=== PATIENT | male | born 1955 | race Caucasian/White ===

== ENCOUNTER 2020-01-30 13:43 | Outpatient (REF) | payer OTHER, SELFPAY | END 2020-01-30 13:44 | disposition home or self-care (01) | LOC: HO.LAB 13:43 | PROVIDERS: Visit Provider Internal Medicine | DX: Z20.828 Contact with and (suspected) exposure to other viral communicable diseases (principal) | CPT/HCPCS: C9803; U0003 ==

== ENCOUNTER 2020-05-06 08:12 | Outpatient (REF) | payer OTHER, SELFPAY ==
--- NOTE | 2020-05-06 11:39 | MHC.AU.P13 ---
Adult Audiological Evaluation Date of Visit: 05/06/20 Reason for Appointment: Audiological evaluation due to concern for decreased hearing. Patient has been in contact with Darren Sanchez from [facility]. He notes that he has been having difficulty hearing and understanding in most situations. He notes that he has to turn his TV to hear it. Does patient feel they have a hearing loss?: Yes If Yes, Which Ear?: Both Ears When Was Hearing Difficulty First Noticed?: ~15 years ago Has hearing been tested previously?: Yes Previous Hearing Test Results: [facility], 15-20 years ago. Patient notes that at that time he was told he has ~25% hearing loss . Records not available to be reviewed today. 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 Medical History: Medical History: Diabetes, Head Injury, High Blood Pressure Medical History (Other): IBS, cataracts in both eyes, 1964 hernia, 1966 tonsils, 1988 varicose vein in groin, 2018 right shoulder surgery Allergies: Peanuts Medication List: Albuterol 90 mg 3x daily, Pravastatin 40 mg daily, Metformin 500 mg 2x daily, Irbesartan 150 mg daily, Esomeprazole 20 mg every other day, Metamucil daily Otoscopy: Right Ear: Occluded with wax, most removed with EarWax MD drops & lighted curette Left Ear: Non-occluding cerumen removed with lighted curette Tympanometry: Tympanometry performed due to: To determine if cerumen blockage is fully occluding canal(s) Right Ear: Normal Middle Ear System (Type A) Double-Peaked Tympanogram Left Ear: Normal Middle Ear System (Type A) Hearing Evaluation: Transducer(s) Used: Insert Earphones Bone Conduction Method: Conventional Audiometry Stimuli Used: Pure Tones Right Ear: Description of Hearing: Mild sloping to moderately severe sensorineural hearing loss from 250-8000 Hz. Left Ear: Description of Hearing: Mild sloping to moderately severe sensorineural hearing loss from 250-8000 Hz. Speech Recognition Threshold (SRT): Method Used: Monitored Live Voice Stimuli Used: Spondee Words Right Ear: 40 dBHL Left Ear: 45 dBHL Word Discrimination: Method: Recorded Lists Word Lists Used: NU-6 Right Ear: 96% at 80 dBHL Left Ear: 84% at 80 dBHL Recommendations: Trial with amplification is recommended. Hearing Aid Fitting will be scheduled when all materials arrive. Patient plans to contact [employer]. See Hearing Aid Evaluation report for more information. [employer] quote will be sent to [facility]. Once approved, aids will be ordered. Recommend use of EarWax MD drops to aid in removing the remaining wax from the right ear and continued use to help prevent further ear wax build-up. Diagnosis: Primary Diagnosis: H90.3 Bilateral Sensorineural Hearing Loss Secondary Diagnosis: H61.21 Impacted Cerumen, Right Ear Services Performed: Services Performed: Comprehensive Audiological Evaluation (CPT 72232) Tympanometry (CPT 09550) Signature: Provider: Tanner Ricketts, CCC-A
--- NOTE | 2020-05-06 11:40 | MHC.AU.P13 ---
Hearing Aid Evaluation- Binaural Date of Visit: 05/06/20 Description of Hearing: Mild sloping to moderately severe sensorineural hearing loss from 250-8000 Hz bilaterally. Additional Information: Mr. Courtney reports significant difficulty hearing and understanding in most situations. Binaural amplification is recommended to facilitate improved communication. Mr. Courtney has been approved for services through [facility]. Went over hearing aid options with him and he is interested in rechargeable SEBASTIAN hearing aids. Hearing Instrument Selection: Right Ear: Ripening Room Operator: Phonak Model: Audeo P70-R Battery Size: Rechargeable Color: P5 Silver Durham Passenger Locomotive Engineer: Size 2 M Type of Dome: large vented Left Ear: Ripening Room Operator: Phonak Model: Audeo P70-R Battery Size: Rechargeable Color: P5 silver durham Passenger Locomotive Engineer: Size 1 M Type of Dome: Large vented Plan: Plan of Care for Hearing Instrument Fitting: Patient wishes to purchase hearing aids as prescribed Action Taken/Action Needed: Prior authorization to be requested Hearing Fitting to be scheduled when materials arrive Diagnosis Code(s): Primary Diagnosis: H90.3 Bilateral Sensorineural Hearing Loss Secondary Diagnosis: H61.21 Impacted Cerumen, Right Ear Signature: Provider: Tanner Ricketts, CCC-A
--- NOTE | 2020-05-06 11:41 | MHC.AU.MED ---
Medical Clearance for Hearing Instrumentation Date: 05/06/20 Patient Name: Gary Courtney Date of : 1955 Primary Care Provider: Matt Downing MD We have seen your patient on 05/06/20 and have determined that they are a candidate for amplification (See accompanying report). Specifically, they would benefit from: Hearing aid use in both ears There is a statute that addresses Medical Evaluation Requirements prior to fitting a patient with a hearing aid. According to [place] statute 265 CMR:6.03(1), (a) General. Except as provided in 265 CMR 6.03(1)(b), a professor of vegetable science shall not sell a hearing aid unless the prospective user has presented to the professor of vegetable science a written statement signed by a licensed physician that states that the patient's hearing loss has been medically evaluated and the patient may be considered a candidate for a hearing aid. The medical evaluation must have taken place within the preceding six months. Please note: Due to the [place] Statute referenced above, we cannot accept a signature other than that of a licensed physician. MAINTENANCE MECHANIC ELEVATORS and PA signatures cannot be accepted. I am in agreement with the above recommendation. There is no medical contraindication for hearing instrumentation. Physician Signature Date Physician Name (Printed)
== END 2020-05-06 08:13 | disposition home or self-care (01) ==
LOC: HO.SH 08:12
PROVIDERS: Visit Provider Internal Medicine
DX: H90.3 Sensorineural hearing loss, bilateral (principal); H61.21 Impacted cerumen, right ear
CPT/HCPCS: 92557; 92567; 92591

== ENCOUNTER 2020-05-06 16:30 | Outpatient (REF) | payer OTHER, SELFPAY | END 2020-05-07 14:38 | disposition other institution (70) | LOC: HO.HAP 16:30 | PROVIDERS: Visit Provider Internal Medicine | DX: Z46.1 Encounter for fitting and adjustment of hearing aid (principal) | CPT/HCPCS: 92591 ==

== ENCOUNTER 2020-06-15 10:21 | Outpatient (REF) | payer OTHER, SELFPAY | END 2020-06-15 10:22 | disposition home or self-care (01) | LOC: HO.HAP 10:21 | PROVIDERS: Visit Provider Internal Medicine | DX: Z46.1 Encounter for fitting and adjustment of hearing aid (principal); H90.3 Sensorineural hearing loss, bilateral | CPT/HCPCS: V5011; V5020; V5160; V5261 ==

== ENCOUNTER 2020-06-19 10:53 | Outpatient (REF) | payer SELFPAY | END 2020-06-19 10:54 | disposition home or self-care (01) | LOC: HO.HAP 10:53 | PROVIDERS: Visit Provider Internal Medicine | DX: Z13.89 Encounter for screening for other disorder (principal) ==

== ENCOUNTER 2021-02-01 13:43 | Outpatient (REF) | payer SELFPAY | END 2021-02-01 13:44 | disposition home or self-care (01) | LOC: HO.HAP 13:43 | PROVIDERS: Visit Provider Nurse Practitioner Family | DX: Z13.89 Encounter for screening for other disorder (principal) ==

== ENCOUNTER 2021-06-21 12:50 | Outpatient (REF) | payer SELFPAY | END 2021-06-21 12:51 | disposition home or self-care (01) | LOC: HO.HAP 12:50 | PROVIDERS: Visit Provider Internal Medicine | DX: Z46.1 Encounter for fitting and adjustment of hearing aid (principal); H90.3 Sensorineural hearing loss, bilateral | CPT/HCPCS: V5267 ==

== ENCOUNTER 2021-12-28 11:27 | Outpatient (REF) | payer SELFPAY ==
--- NOTE | 2021-12-28 12:21 | MHC.AU.HFU ---
Hearing Instrument Follow-Up- Binaural Date of Visit: 12/28/21 Right Ear: Seismograph Computer: Phonak Model: Audeo P70-R Serial Number: [id number] Repair Warranty: 09/01/2023 Loss and Damage Warranty: 09/01/2023 Battery Size: Rechargeable Color: P5 Silver Durham Field Research Assistant: Size 2 M Type of Dome: small open Type of Wax Guard: Cerushield Dispensed By: [facility] Date of Fittin06/12/2020 Left Ear: Seismograph Computer: Phonak Model: Audeo P70-R Serial Number: [id number] Repair Warranty: 09/01/2023 Loss and Damage Warranty: 09/01/2023 Battery Size: Rechargeable Color: P5 silver durham Field Research Assistant: Size 1 M Type of Dome: small open Type of Wax Guard: Cerushield Dispensed By: [facility] Date of Fittin06/12/2020 Follow-Up Summary: Patient dropped off the right hearing aid with the apns wire broken. Replaced #2M right apns under warranty. Cleaned the aid and microphones, aid amplifying clearly. Diagnosis Code(s): Primary Diagnosis: H90.3 Bilateral Sensorineural Hearing Loss Signature:Provider: Tanner Cárdenas, CCC-A
== END 2021-12-28 11:28 | disposition home or self-care (01) ==
LOC: HO.HAP 11:27
PROVIDERS: Visit Provider Internal Medicine
DX: Z13.89 Encounter for screening for other disorder (principal)

== ENCOUNTER 2021-12-30 15:18 | Outpatient (REF) | payer OTHER, SELFPAY ==
--- NOTE | 2021-12-31 08:33 | MHC.AU.HFU ---
Hearing Instrument Follow-Up- Binaural Date of Visit: 12/30/21 Right Ear: Baling Press Operator: Phonak Model: Audeo P70-R Serial Number: [id number] Repair Warranty: 09/01/2023 Loss and Damage Warranty: 09/01/2023 Battery Size: Rechargeable Color: P5 Silver Durham Order Planner: Size 2 M Type of Dome: small open Type of Wax Guard: Cerushield Dispensed By: [facility] Date of Fittin06/12/2020 Left Ear: Baling Press Operator: Phonak Model: Audeo P70-R Serial Number: [id number] Repair Warranty: 09/01/2023 Loss and Damage Warranty: 09/01/2023 Battery Size: Rechargeable Color: P5 silver durham Order Planner: Size 1 M Type of Dome: small open Type of Wax Guard: Cerushield Dispensed By: [facility] Date of Fittin06/12/2020 Follow-Up Summary: Gary returned for a hearing aid repair, as the news editor wire broke off his left hearing aid. Cleaned the left hearing aid, vacuumed the microphones, replaced the news editor wire (size 1M) and dome. Listening check demonstrated that the hearing aid is in good working order. Recommendations:Hearing instrument maintenance in 6 months, or sooner if needed. Please contact our clinic with any questions or concerns. Diagnosis Code(s): Primary Diagnosis: H90.3 Bilateral Sensorineural Hearing Loss Signature: Provider: Gilbert Aguirre, CCC-A
== END 2021-12-30 15:19 | disposition home or self-care (01) ==
LOC: HO.HAP 15:18
PROVIDERS: Visit Provider Internal Medicine
DX: Z13.89 Encounter for screening for other disorder (principal)
CPT/HCPCS: 92621

== ENCOUNTER 2021-12-30 15:23 | Outpatient (REF) | payer OTHER, SELFPAY | END 2021-12-30 15:24 | disposition home or self-care (01) | LOC: HO.HAP 15:23 | PROVIDERS: Visit Provider Internal Medicine | DX: Z13.89 Encounter for screening for other disorder (principal) ==

== ENCOUNTER 2022-01-24 13:36 | Outpatient (REF) | payer SELFPAY ==
--- NOTE | 2022-01-24 14:57 | MHC.AU.HFU ---
Hearing Instrument Follow-Up- Binaural Date of Visit: 01/24/22 Right Ear: Kathy Nunezo P70-R SN: [id number] Color: Silver Durham Repair Warranty: 09/01/2023 Loss and Damage Warranty: 09/01/2023 Service Plan: 06/15/2021 Battery Size: Rechargeable Cane Stripper: Size 2 M Type of Mold: Small open dome Type of Wax Guard: Cerushield Dispensed By: [facility] Date of Fittin06/15/2020 Left Ear: Kathy Nunezo P70-R SN: [id number] Color: Silver Durham Repair Warranty: 09/01/2023 Loss and Damage Warranty: 09/01/2023 Service Plan: 06/15/2021 Battery Size: Rechargeable Cane Stripper: Size 1 M Type of Mold: Small open dome Type of Wax Guard: Cerushield Dispensed By: [facility] Date of Fittin06/15/2020 Follow-Up Summary: Gary reported that his hearing aids were charging intermittently, which was confirmed in office when his hearing aids were initially placed on his configuration management specialist. The indicator lights did not turn on and the hearing aids did not automatically turn off. Placed the hearing aids in a stock configuration management specialist and they began charging immediately. Will send configuration management specialist, power supply, and wall adapter to Kathy for in-warranty repair. Provided a loaner configuration management specialist, power supply, and wall adapter to use in the meantime. Recommendations: Gary will be contacted when his configuration management specialist is back from repair and ready to be picked up. He will need to return the loaner equipment upon milk pickup driver. Diagnosis Code(s): Primary Diagnosis: H90.3 Bilateral Sensorineural Hearing Loss Signature: Provider: Gilbert Aguirre, [facility]
== END 2022-01-24 13:37 | disposition home or self-care (01) ==
LOC: HO.HAP 13:36
PROVIDERS: Visit Provider Internal Medicine
DX: Z13.89 Encounter for screening for other disorder (principal)

== ENCOUNTER 2022-02-08 10:24 | Outpatient (REF) | payer SELFPAY | END 2022-02-08 10:25 | disposition home or self-care (01) | LOC: HO.HAP 10:24 | PROVIDERS: Visit Provider Internal Medicine | DX: Z13.89 Encounter for screening for other disorder (principal) ==

== ENCOUNTER 2022-06-07 15:20 | Outpatient (REF) | payer SELFPAY ==
--- NOTE | 2022-06-07 16:43 | MHC.AU.HFU ---
Hearing Instrument Follow-Up- Binaural Date of Visit: 06/07/22 Right Ear: Kathy Nunezo P70-R SN: [id number] Color: Silver Durham Repair Warranty: 09/01/2023 Loss and Damage Warranty: 09/01/2023 Service Plan: 06/15/2021 Battery Size: Rechargeable Plastic Tubing Insulation Supervisor: Size 2M with retention wire Type of Dome: small open Type of Wax Guard: Cerushield Dispensed By: [facility] Date of Fittin06/15/2020 Left Ear: Kathy Nunezo P70-R SN: [id number] Color: Silver [place] Repair Warranty: 09/01/2023 Loss and Damage Warranty: 09/01/2023 Service Plan: 06/15/2021 Battery Size: Rechargeable Plastic Tubing Insulation Supervisor: Size 1M with retention wire Type of Dome: small open Type of Wax Guard: Cerushield Dispensed By: [facility] Date of Fittin06/15/2020 Follow-Up Summary: The patient is here today as his right hearing aid is not charging. He noticed when he put his hearing aids in his poultry scalder that the right hearing aid charging light did not come on last night. He has also noted that the overall volume of his hearing aids seem weak and intermittent. Otoscopy reveals partially occluding cerumen in the right ear canal and a clear left ear canal. Visual inspection of the hearing aids reveals the right programming manager is twisted and there is debris on the domes and wax guards bilaterally. I replaced the right 2M programming manager and domes/wax guards/retention wires bilaterally. Listening check reveals clear sound bilaterally. I used an alcohol swab and cleaned the poultry scalder and hearing aid contacts. The right hearing aid charging light continues to not come on. The left hearing aid charges normally in both right and left poultry scalder spots. [facility] and they recommended a soft reboot of the hearing aids (pressing and holding the down volume button for 20 seconds and then putting the devices back in the poultry scalder). This resolved the issue. Both hearing aids were charging with the charging lights flashing. I explained to the patient that the right hearing aid somehow got into shipping mode and the reboot resolved the issue. Reviewed cleaning and general hearing aid care. Recommend cerumen removal by PCP (patient has a scheduled visit in 2 weeks), at an urgent care or here. He will reach out should he need any additional follow-up. Diagnosis Code(s): Primary Diagnosis: H90.3 Bilateral Sensorineural Hearing Loss Signature: Provider: Tanner Kuo, CCC-A
== END 2022-06-07 15:21 | disposition home or self-care (01) ==
LOC: HO.HAP 15:20
PROVIDERS: Visit Provider Internal Medicine
DX: Z13.89 Encounter for screening for other disorder (principal)

== ENCOUNTER 2023-03-01 10:31 | Outpatient (REF) | payer SELFPAY | END 2023-03-01 10:32 | disposition home or self-care (01) | LOC: HO.HAP 10:31 | PROVIDERS: Visit Provider Internal Medicine | DX: Z46.1 Encounter for fitting and adjustment of hearing aid (principal); H90.3 Sensorineural hearing loss, bilateral | CPT/HCPCS: 92592 ==

== ENCOUNTER 2023-03-07 13:11 | Outpatient (REF) | payer SELFPAY | END 2023-03-07 13:12 | disposition home or self-care (01) | LOC: HO.HAP 13:11 | PROVIDERS: Visit Provider Internal Medicine | DX: Z46.1 Encounter for fitting and adjustment of hearing aid (principal); H90.3 Sensorineural hearing loss, bilateral | CPT/HCPCS: V5267 ==

== ENCOUNTER 2023-03-28 09:45 | Outpatient (REF) | payer SELFPAY ==
--- NOTE | 2023-03-28 11:13 | MHC.AU.HA3 ---
Hearing Instrument Follow-Up- Binaural Date of Visit: 03/28/23 Right Ear: Lucio, Model, Color, Serial Number: Kathy Rice P70-R SN: [id number] Color: Silver Durham Can Intake Worker Repair Warranty: 09/01/2023 Can Intake Worker Loss and Damage Warranty: 09/01/2023 [facility] Service Plan: 06/15/2021 Battery Size: Rechargeable Cutter Operator Asbestos Shingle/Slim Tube: 2M Earmold/Dome/CShell/SlimTip:Small open dome with retention tail Type of Wax Guard: Cerushield Dispensed By: [facility] Date of Fittin06/15/2020 Left Ear: Lucio, Model, Color, Serial Number: Kathy Rice P70-R SN: [id number] Color: Silver Durham Can Intake Worker Repair Warranty: 09/01/2023 Can Intake Worker Loss and Damage Warranty: 09/01/2023 [facility] Service Plan: 06/15/2021 Battery Size: Rechargeable Cutter Operator Asbestos Shingle/Slim Tube: 1M Earmold/Dome/CShell/SlimTip: Small open dome with retention tail Type of Wax Guard: Cerushield Dispensed By: [facility] Date of Fittin06/15/2020 Follow-Up Summary: Gary reported both of his hearing aids are weak and intermittent, left worse than right. Confirmed via listening check. Left wax guard nearly occluded and microphones filled with dust/debris. Right aviation medicine specialist misshapen. Cleaned both hearing aids. Vacuumed microphones. Replaced both receivers as hearing aids are still under occupational health nurse manager warranty. Replaced domes and retention tails. Listening check after cleaning demonstrated improvement in sound quality with aids amplifying clearly. Gary noticed immediate improvement in office. Discussed occupational health nurse manager warranty ending in August 2023; however, Gary has already been paying for services as [facility] Service Agreement in May 2021. Recommendations: Hearing instrument follow-up or maintenance as needed. Please contact our clinic with any questions or concerns. Diagnosis Code(s): Primary Diagnosis: H90.3 Bilateral Sensorineural Hearing Loss Signature: Provider: Gilbert Aguirre, [facility]
== END 2023-03-28 09:46 | disposition home or self-care (01) ==
LOC: HO.HAP 09:45
PROVIDERS: Visit Provider Internal Medicine
DX: Z46.1 Encounter for fitting and adjustment of hearing aid (principal); H90.3 Sensorineural hearing loss, bilateral
CPT/HCPCS: 92593

== ENCOUNTER 2023-06-26 07:58 | Outpatient (REF) | payer SELFPAY | END 2023-06-26 07:59 | disposition home or self-care (01) | LOC: HO.HAP 07:58 | PROVIDERS: Visit Provider Internal Medicine | DX: Z46.1 Encounter for fitting and adjustment of hearing aid (principal); H90.3 Sensorineural hearing loss, bilateral | CPT/HCPCS: 92593; V5267 ==

== ENCOUNTER 2023-10-16 07:55 | Outpatient (REF) | payer SELFPAY | END 2023-10-16 07:56 | disposition home or self-care (01) | LOC: HO.HAP 07:55 | PROVIDERS: Visit Provider Internal Medicine | DX: Z46.1 Encounter for fitting and adjustment of hearing aid (principal); H90.3 Sensorineural hearing loss, bilateral | CPT/HCPCS: V5299 ==

== ENCOUNTER 2024-05-13 11:13 | Outpatient (REF) | payer SELFPAY | END 2024-05-13 11:14 | disposition home or self-care (01) | LOC: HO.SH 11:13 | PROVIDERS: Visit Provider Internal Medicine | DX: Z13.89 Encounter for screening for other disorder (principal) ==

== ENCOUNTER 2024-05-14 10:02 | Outpatient (REF) | payer SELFPAY | END 2024-05-14 10:03 | disposition home or self-care (01) | LOC: HO.HAP 10:02 | PROVIDERS: Visit Provider Internal Medicine | DX: Z46.1 Encounter for fitting and adjustment of hearing aid (principal); H90.3 Sensorineural hearing loss, bilateral | CPT/HCPCS: 92593; V5267 ==

== ENCOUNTER 2024-05-20 12:24 | Outpatient (REF) | payer SELFPAY | END 2024-05-20 12:25 | disposition home or self-care (01) | LOC: HO.HAP 12:24 | PROVIDERS: Visit Provider Internal Medicine | DX: Z46.1 Encounter for fitting and adjustment of hearing aid (principal); H90.3 Sensorineural hearing loss, bilateral | CPT/HCPCS: V5267 ==

== ENCOUNTER 2024-05-21 14:07 | Outpatient (REF) | payer SELFPAY ==
--- NOTE | 2024-05-21 15:16 | MHC.AU.HA3 ---
Hearing Instrument Follow-Up- Binaural Date of Visit: 05/21/24 Right Ear: Lucio, Model, Color, Serial Number: Kathy Rice P70-R SN: [id number] Color: Silver Durham Hand Box Coverer Repair Warranty: 09/01/2023 Hand Box Coverer Loss and Damage Warranty: 09/01/2023 [facility] Service Plan: 06/15/2021 Battery Size: Rechargeable Transfer Man/Slim Tube: 2M Earmold/Dome/CShell/SlimTip:Small open dome with retention tail Type of Wax Guard: Cerushield Dispensed By: [facility] Date of Fittin06/15/2020 Left Ear: Lucio, Model, Color, Serial Number: Kathy Rice P70-R SN: [id number] Color: Silver Durham Hand Box Coverer Repair Warranty: 09/01/2023 Hand Box Coverer Loss and Damage Warranty: 09/01/2023 [facility] Service Plan: 06/15/2021 Battery Size: Rechargeable Transfer Man/Slim Tube: 1M Earmold/Dome/CShell/SlimTip: Small open dome with retention tail Type of Wax Guard: Cerushield Dispensed By: [facility] Date of Fittin06/15/2020 Follow-Up Summary: Had wax removed at urgent care; however, right STERN reportedly still not working/weak and other people reportedly having difficulty hearing him on phone calls. Otoscopy clear, bilaterally. Listening check demonstrated right STERN significantly weaker than left STERN. No difference with new sugar cane farm manager. Question microphone issue given additional issue with own-voice picker and packer. Need to send to [employer] for repair. Will apply $50.00 from previous visit to [facility] repair fee given ongoing issue; therefore, quoted $280.00 due at picker and packer. Sent right STERN to [employer]. Programmed loaner, connect to left STERN via [employer], and paired to cellphone. Will need appointment for picker and packer to reconnect HAs and help re-pair to phone. Recommendations: Patient will be contacted when materials have arrived. Diagnosis Code(s): Primary Diagnosis: H90.3 Bilateral Sensorineural Hearing Loss Signature: Provider: Gilbert Aguirre, [facility]
--- OUTSIDE RECORDS SUMMARY | 2024-05-21 17:51 | XMS_ITS | Continuity of Care Document ---
Author Organization [facility] Address [address] [place] [address]- Care Team Providers Care Skein Yard Drier Name Role Phone Reynaldo MCCOLLUM, Pauline Archuleta Primary Care Physician [phone] Encounter [facility] Date(s): 04/17/24 - 05/17/24 [facility] [address] [place] [address] Encounter Type: Triage Allergies, Adverse Reactions, Alerts No Known Medication Allergies Substance Criticality Severity Reaction Reaction Severity Status Peanuts diff breathing swelling tongue, hives Active Immunizations Given and Recorded Vaccine Date Status Refusal Reason pneumococcal 20-valent conjugate vaccine 1 10/24/22 Given [id number] 12y+ bivalent booster vax 02/22/22 Recorded SARS-CoV-2 mRNA (vntmufl-lely-svray) vax 10/06/21 Recorded SARS-CoV-2 (COVID-19) mRNA BNT-162b2 vac 03/15/21 Recorded SARS-CoV-2 (COVID-19) mRNA BNT-162b2 vac 06/30/20 Recorded SARS-CoV-2 (COVID-19) mRNA BNT-162b2 vac 06/08/20 Recorded zoster vaccine, inactivated 09/28/20 Recorded zoster vaccine, inactivated 07/18/20 Recorded 1Result Comment: [facility]: [id number] Problem List Condition Confirmation Course Effective Dates Status Health St atus Informant Asthma, persistent controlled Confirmed Active Diarrhea Confirmed Active ED (erectile dysfunction) Confirmed Active Other fatigue Confirmed Active Generalized anxiety disorder Confirmed Active Dyslipidemia Confirmed Active Hypertension Confirmed Active IBS (irritable bowel syndrome) Confirmed Active Pulmonary nodule Confirmed Active Obese class I Confirmed Active Health care maintenance Confirmed Active Skin tag Confirmed Active Type 2 diabetes mellitus Confirmed Active Varicose vein of leg Confirmed Active Social History Social History Type Response Smoking Status Never (less than 100 in lifetime) entered on: 11/02/20 Sex Sex Representation Male (finding) Patient Care team information Care Team Personnel Name: Sarah Beth Morton MA Position: [facility] MA Member Role: Lifetime Consulting Physician Name: Pauline Jacobs MD, V Position: [facility] Physician - Primary Care Member Role: PCP Address: [address] [place] [address] Telecom: Care Team Related Persons Name: JOSUÉ XIE Insurance Providers Guarantor name: NILA XIE Health Plan Information #: 1 Payer: DORIAN [facility] HMO Member Number: NA Policy Number: NA Group Number: NA
== END 2024-05-21 14:08 | disposition home or self-care (01) ==
LOC: HO.HAP 14:07
PROVIDERS: Visit Provider Internal Medicine
DX: Z13.89 Encounter for screening for other disorder (principal)

== ENCOUNTER 2024-06-24 14:09 | Outpatient (REF) | payer SELFPAY ==
--- OUTSIDE RECORDS SUMMARY | 2024-06-24 16:56 | XMS_ITS | Continuity of Care Document ---
Author Organization [facility] Address [address] [place] [address]- Care Team Providers Care Contract Associate Name Role Phone Reynaldo MCCOLLUM, Pauline Archuleta Primary Care Physician [place] [facility] [place]24 - 06/19/24 [facility] [address] [place], [place] [address] Encounter Type: Triage Allergies, Adverse Reactions, Alerts No Known Medication Allergies Substance Criticality Severity Reaction Reaction Severity Status Peanuts diff breathing swelling tongue, hives Active Immunizations Given and Recorded Vaccine Date Status Refusal Reason pneumococcal 20-valent conjugate vaccine 1 10/24/22 Given [id number] 12y+ bivalent booster vax 02/22/22 Recorded SARS-CoV-2 mRNA (gwdddka-fcgp-kygib) vax 10/06/21 Recorded SARS-CoV-2 (COVID-19) mRNA BNT-162b2 vac 03/15/21 Recorded SARS-CoV-2 (COVID-19) mRNA BNT-162b2 vac 06/30/20 Recorded SARS-CoV-2 (COVID-19) mRNA BNT-162b2 vac 06/08/20 Recorded zoster vaccine, inactivated 09/28/20 Recorded zoster vaccine, inactivated 07/18/20 Recorded 1Result Comment: [facility]: [id number] Problem List Condition Confirmation Course Effective Dates [...] Personnel Name: Sarah Beth Morton MA Position: [facility] Member Role: Lifetime Consulting Physician Name: Pauline Jacobs MD, V Position: [facility] Physician - Primary Care Member Role: PCP Address: [address] [place] [address] Telecom: Care Team Related Persons Name: JOSUÉ XIE Insurance Providers Guarantor name: NILA XIE Health Plan Information #: 1 Payer: DORIAN [facility] HMO Member Number: NA Policy Number: NA Group Number: NA
--- OUTSIDE RECORDS SUMMARY | 2024-06-24 16:56 | XMS_ITS | Continuity of Care Document ---
Author Organization [facility] Address [address] [place] [address]- Care Team Providers Care Cigarette Examiner Name Role Phone Reynaldo MCCOLLUM, Pauline Archuleta Primary Care Physician Encounter [facility] Date(s): 05/21/24 - 06/20/24 [facility] [address] [place], [place] [address] Encounter Type: Triage Allergies, Adverse Reactions, Alerts No Known Medication Allergies Substance Criticality Severity Reaction Reaction Severity Status Peanuts diff breathing swelling tongue, hives Active Immunizations Given and Recorded Vaccine Date Status Refusal Reason pneumococcal 20-valent conjugate vaccine 1 10/24/22 Given [id number] 12y+ bivalent booster vax 02/22/22 Recorded SARS-CoV-2 mRNA (bvdnxtc-utuy-oymul) vax 10/06/21 Recorded SARS-CoV-2 (COVID-19) mRNA BNT-162b2 vac 03/15/21 Recorded SARS-CoV-2 (COVID-19) mRNA BNT-162b2 vac 06/30/20 Recorded SARS-CoV-2 (COVID-19) mRNA BNT-162b2 vac 06/08/20 Recorded zoster vaccine, inactivated 09/28/20 Recorded zoster vaccine, inactivated 07/18/20 Recorded 1Result Comment: [facility]: [id number] Problem List Condition Confirmation Course Effective Dates [...] Personnel Name: Sarah Beth Morton MA Position: [facility] MA Member Role: Lifetime Consulting Physician Name: Pauline Jacobs MD, V Position: [facility] Physician - Primary Care Member Role: PCP Address: [address] [place] [address] Telecom: Care Team Related Persons Name: JOSUÉ XIE Insurance Providers Guarantor name: NILA XIE Health Plan Information #: 1 Payer: DORIAN [facility] HMO Member Number: NA Policy Number: NA Group Number: NA
== END 2024-06-24 14:10 | disposition home or self-care (01) ==
LOC: HO.HAP 14:09
PROVIDERS: Visit Provider Internal Medicine
DX: Z46.1 Encounter for fitting and adjustment of hearing aid (principal); H90.3 Sensorineural hearing loss, bilateral
CPT/HCPCS: V5014

== ENCOUNTER 2024-10-14 11:59 | Outpatient (REF) | payer OTHER, SELFPAY ==
--- OUTSIDE RECORDS SUMMARY | 2024-10-10 23:59 | XMS_ITS | Continuity of Care Document ---
Author Organization [facility] ter Address [address] [place] [address]- Care Team Providers Care Mothercraft Nurse Name Role Phone Reynaldo MCCOLLUM, Pauline Archuleta Primary Care Physician Encounter [facility] [id number] Date(s): 06/28/24 - 10/10/24 [facility] [address] [place] [id number] Attending Physician: Aline Bajwa MD Admitting Physician: Aline Bajwa MD Referring Physician: Pauline Jacobs MD, V Encounter Type: Pre-Outpt Allergies, Adverse Reactions, Alerts No Known Medication Allergies Substance Criticality Severity Reaction Reaction Severity Status Peanuts diff breathing swelling tongue, hives Active Immunizations Given and Recorded Vaccine Date Status Refusal Reason pneumococcal 20-valent conjugate vaccine 1 10/24/22 Given [id number] 12y+ bivalent booster vax 02/22/22 Recorded SARS-CoV-2 mRNA ([id number]) vax 10/06/21 Recorded SARS-CoV-2 (COVID-19) mRNA BNT-162b2 vac 03/15/21 Recorded SARS-CoV-2 (COVID-19) mRNA BNT-162b2 vac 06/30/20 Recorded SARS-CoV-2 (COVID-19) mRNA BNT-162b2 vac 06/08/20 Recorded zoster vaccine, inactivated 09/28/20 Recorded zoster vaccine, inactivated 07/18/20 Recorded 1Result Comment: nd: [id number] Medications Albuterol (Eqv-ProAir HFA) 90 mcg/inh inhalation aerosol See Instructions, INHALE 2 PUFFS BY MOUTH EVERY 4 HOURS NEEDED, # 8.5 Gm, 2 Refills, Maintenance, 08/20/24 9:06:00 AM EDT, [facility], 17, INHALE 2 PUFFS BY MOUTH EVERY 4 HOURS NEEDED, 178, cm, 07/24/24 12:59:00 EDT, Height, 101.1, kg, 10/17/23 15:49:00 EDT, Dry Weight Start Date: 08/20/24 Status: Ordered Quantity: 8.5 Unit: g Repeat number: 1 Alcohol Pads See Instructions, # 100 each, Refills 0, Tot. Refills 0, Maintenance, daily for fasting glucose forType 2 Diabetes Mellitus, 02/15/23 5:03:00 PM EST, Compound, 178, cm, 01/30/23 9:53:00 EST, Height,100.8, kg, 01/27/23 12:47:00 EST, Dry Weight Start Date: 02/15/23 Stop Date: 03/17/23 Status: Ordered Quantity: 100.0 Unit: each Repeat number: 1 amoxicillin 500 mg oral tablet 8 each, 0 Refill(s), TAKE 4 TABLETS BY MOUTH DIRECTED 1 HOUR BEFORE DENTAL APPOINTMENT, 0 Refills, 04/09/24 3:00:00 PM EST, Partial fill upon patient request if the prescription is for a schedule II opioid drug. Start Date: 04/09/24 Status: Ordered Repeat number: 1 cephalexin monohydrate 500 mg oral capsule 21 each, 0 Refill(s), 0 Refills, 09/16/24 3:15:00 PM EDT, Partial fill upon patient request if the prescription is for a schedule II opioid drug. Start Date: 09/16/24 Status: Ordered Repeat number: 1 dicyclomine 10 mg oral capsule 1 capsule = 10 mg, By Mouth, 4 times a day, Take as needed up to four times a day., # 120 capsule, 3 Refills, Maintenance, 03/26/24 8:33:00 AM EST, [facility], Partial fill upon patient request if the prescription is for a schedule II opioid drug., 178, cm, 03/26/24 8:00:00 EST, Height, 101.1, kg, 10/17/23 15:49:00 EDT, Dry Weight Start Date: 03/26/24 Status: Ordered Quantity: 120.0 Unit: capsule Repeat number: 4 esomeprazole 20 mg oral delayed release tablet 1 tablet = 20 mg, By Mouth, Daily in AM, # 90 tablet, 1 Refills, Maintenance, 11/02/20 3:24:00 PM EDT, EC Tablet, [facility], Partial fill upon patient request if the prescription is for a schedule II opioid drug., 178, cm, 11/02/20 14:33:00 EDT, Height, 102.1, kg, 12/01/18 9:05:00 EDT, Dry Weight Start Date: 11/02/20 Status: Ordered Quantity: 90.0 Unit: tablet Repeat number: 2 Freestyle Regla 3 PLUS Sensor Freestyle Regla 3 PLUS Sensor, See Instructions, # 2 each, Refills 11, Tot. Refills 11, Maintenance, Use to continuously monitor blood sugar and change sensor every 15 days E11.9, 09/17/24 3:58:00 PM EDT, replacing FSL2, Supply, 178, cm, 09/16/24 15:17:00 EDT, Height, 101.1, kg, 10/17/23 15:49:00 EDT, Dry Weight Start Date: 09/17/24 Status: Ordered Quantity: 2.0 Unit: each Repeat number: 12 Freestyle Regla 3 [place] Freestyle Regla 3 [place], See Instructions, # 1 each, Refills 0, Tot. Refills 0, Maintenance, Use to continuously monitor blood sugar and use with FSL3+ sensor E11.9, 09/17/24 3:58:00 PM EDT, replacingFSL2, Supply, 178, cm, 09/16/24 15:17:00 EDT, Height, 101.1, kg, 10/17/23 15:49:00 EDT, Dry Weight Start Date: 09/17/24 Status: Ordered Quantity: 1.0 Unit: each Repeat number: 1 Freestyle Lite Lancets See Instructions, # 100 each, Refills 0, Tot. Refills 0, Maintenance, daily for fasting glucose forType 2 Diabetes Mellitus, 02/15/23 5:03:00 PM EST, Compound, 178, cm, 01/30/23 9:53:00 EST, Height,100.8, kg, 01/27/23 12:47:00 EST, Dry Weight Start Date: 02/15/23 Stop Date: 03/17/23 Status: Ordered Quantity: 100.0 Unit: each Repeat number: 1 Freestyle Lite Test Strips See Instructions, # 100 each, Refills 0, Tot. Refills 0, Maintenance, daily for fasting glucose forType 2 Diabetes Mellitus, 02/15/23 5:03:00 PM EST, Compound, 178, cm, 01/30/23 9:53:00 EST, Height,100.8, kg, 01/27/23 12:47:00 EST, Dry Weight Start Date: 02/15/23 Stop Date: 03/17/23 Status: Ordered Quantity: 100.0 Unit: each Repeat number: 1 hydroCHLOROthiazide 12.5 mg oral capsule See Instructions, TAKE ONE CAPSULE BY MOUTH ONCE DAILY, # 30 capsule, 3 Refills, Maintenance, 08/20/24 9:03:00 AM EDT, [facility], 178, cm, 07/24/24 12:59:00 EDT, Height, 101.1, kg, 10/17/23 15:49:00 EDT, Dry Weight Start Date: 08/20/24 Status: Ordered Quantity: 30.0 Unit: capsule Repeat number: 1 irbesartan 300 mg oral tablet See Instructions, TAKE ONE TABLET BY MOUTH ONCE DAILY, # 90 tablet, 1 Refills, Maintenance, 258:47:00 AM EDT, [facility], 178, cm, 06/17/24 15:28:00 EDT, Height, 101.1, kg, 10/17/23 15:49:00 EDT, Dry Weight Start Date: 07/09/24 Status: Ordered Quantity: 90.0 Unit: tablet Repeat number: 1 Lantus Solostar Pen 100 units/mL subcutaneous solution See Instructions, inject 36 units once a day at dinner, # 15 mL, 11 Refills, Maintenance, 06/03/24 2:21:00 PM EDT, [facility], dose increase, 178, cm, 06/03/24 13:01:00 EDT, Height, 101.1, kg, 10/17/23 15:49:00 EDT, Dry Weight Start Date: 06/03/24 Status: Ordered Quantity: 15.0 Unit: mL Repeat number: 12 Indications: Type 2 diabetes mellitus without complications; Metamucil 3.4 gm/5.2 gm oral powder for reconstitution = 1.7 Gm, By Mouth, 3 times a day, PRN as needed for constipation, # 300 Gm, 0 Refills, Maintenance, 11/02/20 3:24:00 PM EDT, REC Powder, [facility], Partial fill upon patient request if the prescription is for a schedule II opioid drug., 178, cm, 11/02/20 14:33:00 EDT, Height, 102.1, kg,12/01/18 9:05:00 EDT, Dry Weight Start Date: 11/02/20 Status: Ordered Quantity: 300.0 Unit: g Repeat number: 1 Miscellaneous Rx 0 Refills, 2 each, 0 Refill(s), 04/09/24 3:00:00 PM EST Start Date: 04/09/24 Status: Ordered Repeat number: 1 PEG-[id number] with Electrolytes (Eqv-GoLYTELY) oral powder for reconstitution 240 mL, By Mouth, Every 10 minutes, Prior to colonoscopy, # 1 each, 0 Refills, Maintenance, 03/26/24 8:34:00 AM EST, REC Powder, [facility], Partial fill upon patient request if the prescription is for a schedule II opioid drug., 240 mL By Mouth Every 10 minutes,Instr:Prior to colonoscopy, 178, cm, 03/26/24 8:00:00 EST, Height, 101.1, kg, 10/17/23 15:49:00 EDT, Dry Weight Start Date: 03/26/24 Status: Ordered Quantity: 1.0 Unit: each Repeat number: 1 Pen [place], 31 G x 5 mm BD Ultra Fine III See Instructions, # 100 each, Refills 5, Tot. Refills 5, Maintenance, Check sugars twice a day E11.9, 10/04/24 12:02:00 PM EDT, Supply, 178, cm, 09/16/24 15:17:00 EDT, Height, 101.1, kg, 10/17/23 15:49:00 EDT, Dry Weight Start Date: 10/04/24 Stop Date: 04/02/25 Status: Ordered Quantity: 100.0 Unit: each Repeat number: 6 pravastatin 40 mg oral tablet 1 tablet, By Mouth, Daily in AM, # 90 tablet, 3 Refills, Maintenance, 05/22/24 8:04:00 AM EST, [facility] 1967, 178, cm, 05/21/24 11:45:00 EST, Height, 101.1, kg, 10/17/23 15:49:00 EDT, Dry Weight Start Date: 05/22/24 Status: Ordered Quantity: 90.0 Unit: tablet Repeat number: 1 sertraline 50 mg oral tablet See Instructions, TAKE 1/2 (ONE-HALF) TABLET BY MOUTH DAILY FOR 14 DAYS AND THEN INCREASE TO ONE TABLET DAILY THEREAFTER, # 30 tablet, 0 Refills, Maintenance, 01/11/22 8:52:00 AM EDT, [facility] 1969, 178, cm, 10/04/21 12:29:00 EDT, Height Start Date: 01/11/22 Status: Ordered Quantity: 30.0 Unit: tablet Repeat number: 1 Tylenol Extra Strength 500 mg oral tablet 2 tablet = 1,000 mg, By Mouth, 2 times a day, PRN as needed for pain, # 24 tablet, 0 Refills, Maintenance, 12/07/17 2:20:31 PM EDT, Tablet Start Date: 12/07/17 Status: Ordered Quantity: 24.0 Unit: tablet Repeat number: 1 Problem List Condition Confirmation Course Effective Dates Status Health St atus Informant Asthma, persistent controlled Confirmed Active ED (erectile dysfunction) Confirmed Active Generalized anxiety disorder Confirmed Active Left hip pain Confirmed Active Dyslipidemia Confirmed Active Hypertension Confirmed Active IBS (irritable bowel syndrome) Confirmed Active PVC's (premature ventricular contractions) Confirmed Active Pulmonary nodule Confirmed Active Obese class I Confirmed Active Health care maintenance Confirmed Active Type 2 diabetes mellitus Confirmed Active Varicose vein of leg Confirmed Active Social History Social History Type Response Smoking Status Never (less than 100 in lifetime) entered on: 11/02/20 Sex Sex Representation Male (finding) Patient Care team information Care Team Personnel Name: Sarah Beth Morton MA Position: [facility] Member Role: Lifetime Consulting Physician Name: Pauline Jacobs MD, V Position: [facility] Physician - Primary Care Member Role: PCP Address: [address] [place] [address] Telecom: Care Team Related Persons Name: JOSUÉ XIE Insurance Providers Guarantor name: NILA XIE [facility] Plan Information #: 1 [facility] Payer Identifier: NA Member Number: [id number] Group Number: [id number] Subscriber Identifier: [id number] Relationship to Subscriber: spouse Coverage Type: Other Private Insurance Coverage Verification Date: NA Telecom: NA Address:
--- OUTSIDE RECORDS SUMMARY | 2024-10-10 23:59 | XMS_ITS | Continuity of Care Document ---
Author Organization [facility] Address [address] [place] [address]- Care Team Providers Care Projection Camera Operator Name Role Phone Reynaldo MCCOLLUM, Pauline Archuleta Primary Care Physician [phone] Encounter 10/03/24 - 10/10/24 [facility] [address], [address] [place], [place] [address] Attending Physician: Favio Reed Admitting Physician: Favio Reed Referring Physician: Favio Reed Encounter Type: OutPatient One Time Allergies, Adverse Reactions, Alerts No Known Medication Allergies Substance Criticality Severity Reaction Reaction Severity Status Peanuts diff breathing swelling tongue, hives Active Immunizations Given and Recorded Vaccine Date Status Refusal Reason pneumococcal 20-valent conjugate vaccine 1 10/24/22 Given [id number] 12y+ bivalent booster vax 02/22/22 Recorded SARS-CoV-2 mRNA (jjnqman-meww-vdrjw) vax 10/06/21 Recorded SARS-CoV-2 (COVID-19) mRNA BNT-162b2 vac 03/15/21 Recorded SARS-CoV-2 (COVID-19) mRNA BNT-162b2 vac 06/30/20 Recorded SARS-CoV-2 (COVID-19) mRNA BNT-162b2 vac 06/08/20 Recorded zoster vaccine, inactivated 09/28/20 Recorded zoster vaccine, inactivated 07/18/20 Recorded 1Result Comment: [facility]: [id number] Medications Albuterol (Eqv-ProAir HFA) 90 mcg/inh inhalation aerosol See Instructions, INHALE 2 PUFFS BY MOUTH EVERY 4 HOURS NEEDED, # 8.5 Gm, 2 Refills, Maintenance, 08/20/24 9:06:00 AM EDT, [facility], 17, INHALE 2 PUFFS BY [...] 3 Refills, Maintenance, 03/26/24 8:33:00 AM EST, [facility], Partial fill upon patient [...] Maintenance, 11/02/20 3:24:00 PM EDT, EC Tablet, [facility], Partial fill upon patient request if the [...] each Repeat number: 12 Freestyle Regla 3 [place] Freestyle Regla 3 [place], See Instructions, # 1 each, Refills 0, [...] 3 Refills, Maintenance, 08/20/24 9:03:00 AM EDT, [facility], 178, cm, 07/24/24 12:59:00 EDT, Height, 101.1, kg, 10/17/23 15:49:00 EDT, Dry Weight Start Date: 08/20/24 Status: Ordered Quantity: 30.0 Unit: capsule Repeat number: 1 irbesartan 300 mg oral tablet See Instructions, TAKE ONE TABLET BY MOUTH ONCE DAILY, # 90 tablet, 1 Refills, Maintenance, 258:47:00 AM EDT, [facility], 178, cm, 06/17/24 15:28:00 EDT, Height, 101.1, kg, 10/17/23 15:49:00 EDT, Dry Weight Start Date: 07/09/24 Status: Ordered Quantity: 90.0 Unit: tablet Repeat number: 1 Lantus Solostar Pen 100 units/mL subcutaneous solution See Instructions, inject 36 units once a day at dinner, # 15 mL, 11 Refills, Maintenance, 06/03/24 2:21:00 PM EDT, [facility], dose increase, 178, cm, [...] Maintenance, 11/02/20 3:24:00 PM EDT, REC Powder, [place] [id number], Partial fill upon patient request if the [...] Maintenance, 03/26/24 8:34:00 AM EST, REC Powder, [facility], Partial fill upon patient request if the prescription is for a schedule II opioid drug., 240 mL By Mouth Every 10 minutes,Instr:Prior to colonoscopy, 178, cm, 03/26/24 8:00:00 EST, Height, 101.1, kg, 10/17/23 15:49:00 EDT, Dry Weight Start Date: 03/26/24 Status: Ordered Quantity: 1.0 Unit: each Repeat number: 1 Pen [place], 31 G x 5 mm BD Ultra [...] 3 Refills, Maintenance, 05/22/24 8:04:00 AM EST, [facility], 178, cm, 05/21/24 11:45:00 EST, Height, 101.1, kg, 10/17/23 15:49:00 EDT, Dry Weight Start Date: 05/22/24 Status: Ordered Quantity: 90.0 Unit: tablet Repeat number: 1 sertraline 50 mg oral tablet See Instructions, TAKE 1/2 (ONE-HALF) TABLET BY MOUTH DAILY FOR 14 DAYS AND THEN INCREASE TO ONE TABLET DAILY THEREAFTER, # 30 tablet, 0 Refills, Maintenance, 01/11/22 8:52:00 AM EDT, [facility], 178, cm, 10/04/21 12:29:00 EDT, [...] Active Varicose vein of leg Confirmed Active Results Radiology Reports * Exam Date Time Procedure Performing Provider Status 10/02/24 9:41 AM US Scrotum and Contents A ut (Verified) Notes: (US Scrotum and Contents) Reason For Exam: Testicular pain, unspecified RESULT: US Scrotum and Contents US Pelvic Doppler Comp, US Scrotum and Contents THE STUDY WAS PERFORMED AT [facility] , [address] [place] [address] Reason: Testicular pain, unspecified COMPARISON: 02/03/2022. TECHNIQUE: High-resolution sonography with grayscale, color and spectral Doppler analysis. FINDINGS: RIGHT: Right testicle size: 4.0 x 2.2 x 3.2 cm (15 cc). Normal right testicle size, contour and echotexture without focal lesions. Normal arterial and venous waveforms. The epididymis reveals multiple cysts/spermatoceles, the largest measuring 5.2 x 2.1 x 4.9 cm , unchanged. No significant hydrocele or varicocele. LEFT: Left testicle size: 4.7 x 2.1 x 3.6 cm (19 cc). Normal left testicle size, contour and echotexture without focal lesions. Normal arterial and venous waveforms. The epididymis also reveals multiple cysts/spermatoceles, largest measuring up to 4 cm (previously 3.8 cm, not significantly changed). There is a mild varicocele, with the largest vein enlarging from 3.2 to 3.6 mm with Valsalva. IMPRESSION: 1. Normal testes with no evidence of torsion. 2. Large bilateral epididymal head cysts/spermatoceles again noted. 3. Mild left varicocele, minimally more prominent. WSN: [id number] Ordering Physician: Favio Forbes Dictated By: Lei Vasquez MD Dictated Date/Time: 10/03/24 1:22 pm Reviewed By: Lei Vasquez MD Signed By: Lei Vasquez MD Signed Date/Time: 10/03/24 1:22 pm Transcribed By: HERMELINDA Transcribed Date/Time: 10/03/24 1:22 pm * Exam Date Time Procedure Performing Provider Status 10/02/24 9:41 AM US Pelvic Doppler Comp th (Verified) Notes: (US Pelvic Doppler Comp) Reason For Exam: Testicular pain, unspecified RESULT: US Pelvic Doppler Comp US Pelvic Doppler Comp, US Scrotum and Contents THE STUDY WAS PERFORMED AT [facility] , [address] [place] [address] Reason: Testicular pain, unspecified COMPARISON: 02/03/2022. TECHNIQUE: High-resolution sonography with grayscale, color and spectral Doppler analysis. FINDINGS: RIGHT: Right testicle size: 4.0 x 2.2 x 3.2 cm (15 cc). Normal right testicle size, contour and echotexture without focal lesions. Normal arterial and venous waveforms. The epididymis reveals multiple cysts/spermatoceles, the largest measuring 5.2 x 2.1 x 4.9 cm , unchanged. No significant hydrocele or varicocele. LEFT: Left testicle size: 4.7 x 2.1 x 3.6 cm (19 cc). Normal left testicle size, contour and echotexture without focal lesions. Normal arterial and venous waveforms. The epididymis also reveals multiple cysts/spermatoceles, largest measuring up to 4 cm (previously 3.8 cm, not significantly changed). There is a mild varicocele, with the largest vein enlarging from 3.2 to 3.6 mm with Valsalva. IMPRESSION: 1. Normal testes with no evidence of torsion. 2. Large bilateral epididymal head cysts/spermatoceles again noted. 3. Mild left varicocele, minimally more prominent. WSN: [id number] Ordering Physician: Favio Forbes Dictated By: Lei Vasquez MD Dictated Date/Time: 10/03/24 1:22 pm Reviewed By: Lei Vasquez MD Signed By: Lei Vasquez MD Signed Date/Time: 10/03/24 1:22 pm Transcribed By: HERMELINDA Transcribed Date/Time: 10/03/24 1:22 pm Social History Social History Type Response Smoking Status Never (less than 100 in lifetime) entered on: 11/02/20 Sex Sex Representation Male (finding) Patient Care team information Care Team Personnel Name: Sarah Beth Morton MA Position: [facility] Member Role: Lifetime Consulting Physician Name: Pauline Jacobs MD, V Position: [facility] Physician - Primary Care Member Role: PCP Address: [address] [place] [address] Telecom: Care Team Related Persons Name: JOSUÉ XIE Insurance Providers Guarantor name: NILA XIE Health Plan Information #: 1 Payer: [facility] Payer Identifier: CRISTOPHER Member Number: [id number] Group Number: [id number] Subscriber Identifier: [id number] Relationship to Subscriber: spouse Coverage Type: Other Private Insurance Coverage Verification Date: NA Telecom: NA Address: NA
--- NOTE | ~2024-10-14 | XR_ITS ---
EXAMINATION: XR SHOULDER, RIGHT CLINICAL INFORMATION: M25.519 - Pain in unspecified shoulder COMPARISON: March 14, 2017. TECHNIQUE: AP external rotation, Grashey, scapular Y, and axillary views of the right shoulder. FINDINGS: There is a right glenohumeral joint prosthesis with apparent mild loosening at the humeral component. No gross malalignment. XR/XR shoulder RT min 2V IMPRESSION: Status post arthroplasty prosthesis with questionable mild loosening at the humeral component. Electronically signed by: Petr Arroyo MD 10/14/2024 02:22 PM EDT
== END 2024-10-14 12:00 | disposition home or self-care (01) ==
LOC: HO.HOSX 11:59
PROVIDERS: Visit Provider Orthopaedic Surgery
DX: M25.511 Pain in right shoulder (principal); Z96.611 Presence of right artificial shoulder joint
CPT/HCPCS: 73030; 99202

== ENCOUNTER 2024-10-14 14:04 | Outpatient (AMB) | payer OTHER, SELFPAY ==
--- NOTE | 2024-10-14 14:08 | MHC.OFFVIS ---
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 He was previously seen with [facility] who performed a Right Reverse Total Shoulder Arthroplasty in 2018. [facility] no longer accepts workers compensation thus he is looking to have yearly check ins of the shoulder. He reports that he is doing well overall. Would like Note stating 10 lb limit for work. 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 He was previously seen with [facility] who performed a Right Reverse Total Shoulder Arthroplasty in 2018. [facility] no longer accepts workers compensation thus he is looking to have yearly check ins of the shoulder. He reports that he is doing well overall. Would like Note stating 10 lb limit for work. 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 He has no complaints regarding his right shoulder. He was told it may loosen over time and he, therefore, is restricted from heavy lifting to extend the duration of the prosthetic. Physical Exam Vital Signs: BMI result Body Mass Index 30.6 Const General: cooperative, healthy appearing, no acute distress, well developed and alert HEENT Head: Yes normal to inspection, Yes normocephalic and Yes atraumatic Mouth: moist mucous membranes Eyes General: appearance normal, both eyes and all related structures EOM: EOMs intact bilaterally Chest Other: no audible wheezing. Resp Other: No audible wheezing Effort & Inspection: normal respiratory effort Cardio Other: Radial pulse palpable with no rythmic abnormalities Back/Spine/Pelvis Cervical Spine: normal cervical lordosis Skin General skin exam: no rashes or lesions noted Neuro General: no focal motor deficits Extrem Other: 30/90/130/hp neg EC neg lift off RP 2+ SILT RUE Psych Appearance: grossly normal and well kempt Mental Status: mental status grossly normal Speech and movement: Normal speech and movement present Affect: normal affect Attitude: cooperative Results Reviewed Results Reviewed: I personally reviewed relevant radiographs. Right TSA in expected post operative position with no hardware complications or evidence of loosening Assessment & Plan Assessment & Plan (1) Shoulder joint replacement status: Code(s): Z96.619 - Presence of unspecified artificial shoulder joint Category: Surgical Plan: This is a 69 yo M ~ 7 years s/p right rTSA. He is doing very well. His motion is excellent and his radiographs show an appropriately aligned rTSA with no evidence of loosening. He should continue to restric lifting to no more than 10 lbs. Otherwise there are no restrictions and he may engage in activity as tolerated. He may follow up in one year for repeat radiographs and clinical exam. Orders: Orders XR shoulder RT min 2V 10/14/24 M25.519 - Pain in unspecified shoulder Coding Level of Care Code New Pt Level 3 (87058) Diagnoses Shoulder joint replacement status Z96.619
[2024-10-14 14:18] VITALS: BMI 30.6
== END 2024-10-14 14:43 | disposition home or self-care (01) ==
LOC: HO.HOS 14:05
PROVIDERS: PCP Internal Medicine; Visit Provider Orthopaedic Surgery
DX: Z47.89 Encounter for other orthopedic aftercare (principal); Z96.611 Presence of right artificial shoulder joint
CPT/HCPCS: 99203

== ENCOUNTER → 2024-10-14 14:08 | Outpatient (BNV) | payer OTHER, SELFPAY | PROVIDERS: Visit Provider Radiology Diagnostic Radiology | DX: M25.511 Pain in right shoulder (principal) | CPT/HCPCS: 73030 ==

== ENCOUNTER 2024-10-14 15:09 | Outpatient (REF) | payer SELFPAY | END 2024-10-14 15:10 | disposition home or self-care (01) | LOC: HO.SH 15:09 | PROVIDERS: Visit Provider Internal Medicine | DX: Z01.118 Encounter for examination of ears and hearing with other abnormal findings (principal); H90.3 Sensorineural hearing loss, bilateral | CPT/HCPCS: V5267 ==

== ENCOUNTER 2024-12-27 08:09 | Outpatient (REF) | payer SELFPAY | END 2024-12-27 08:10 | disposition home or self-care (01) | LOC: HO.HAP 08:09 | PROVIDERS: Visit Provider Internal Medicine | DX: Z13.89 Encounter for screening for other disorder (principal) ==

== ENCOUNTER 2024-12-31 13:31 | Outpatient (REF) | payer SELFPAY | END 2024-12-31 13:32 | disposition home or self-care (01) | LOC: HO.HAP 13:31 | PROVIDERS: Visit Provider Internal Medicine | DX: Z46.1 Encounter for fitting and adjustment of hearing aid (principal); H90.3 Sensorineural hearing loss, bilateral | CPT/HCPCS: V5299 ==